=== PATIENT | female | born 1990 | race Caucasian/White ===

== ENCOUNTER 2021-05-05 15:10 | Emergency (ER) | payer MEDICAID, SELFPAY ==
[2021-05-05 15:24] VITALS: BP 116/66; PULSE 97; RESP 18; TEMP 36.2; O2SAT 100; BMI 31.0
--- NOTE | 2021-05-05 17:00 | ED_ITS ---
HPI - Skin/Abscess/Foreign Bdy General: Chief complaint: Skin/Abscess/Foreign Body Stated complaint: L HAND FINGER INFECTION Time Seen by Provider: 05/05/21 16:59 History of Present Illness: HPI narrative: patient comes in today with soreness and redness to left index finger for 3 days. patient reports she chews on her nail. patient reports no antibiotic allergies. patient reports no history of recurrent staph infections. Review of Systems General: Reports: 10 or more systems reviewed and unremarkable except in HPI and below Skin/Breast: Reports: other (left index finger redness and pain) Physical Exam Const: COMMON NORMALS: no acute distress and patient oriented x3 GENERAL APPEARANCE: cooperative HENMT: COMMON NORMALS: normocephalic HEAD & SCALP: normal to inspection and normocephalic Eye: GENERAL EYE: appearance normal, both eyes and all related structures Neck/C-Spine: COMMON NORMALS: full ROM Chest: COMMONS NORMALS: normal inspection of the chest Resp: COMMON NORMALS: normal respiratory effort EFFORT & INSPECTION: Yes able to speak in complete sentences Cardio: COMMON NORMALS: regular rate and regular rhythm RATE: regular rate RHYTHM: regular rhythm GI: COMMON NORMALS: non-tender Extremity: COMMON NORMALS: normal to inspection Neuro: COMMON NORMALS: patient oriented x3 and moves all extremities Psych: COMMON NORMALS: mental status grossly normal and cooperative Skin: NARRATIVE SKIN EXAM: erythema and swelling to left nailbed index finger. localized to distal finger, normal range of motion Course Vital Signs: Vital signs: Vital Signs Temperature 97.2 F L 05/05/21 15:24 Pulse Rate 97 05/05/21 15:24 Respiratory Rate 18 05/05/21 15:24 Blood Pressure 116/66 05/05/21 15:24 Pulse Oximetry 100 05/05/21 15:24 MDM - Skin/Abscess/Foreign Bdy MDM Narrative: Medical decision making narrative: patient comes in for redness and swelling distal left index finger for 2-3 days. good range of motion of finger. redness and swelling localized to nail matrix area. differential diagnosis includes paronychia, cellulitis, tenosynivitis. no sign of serious illness. will treat paronychia with oral augmentin 875 two times a day, and mupirocin ointment to base of nail until healed. patient reports understanding and agrees to plan. Discharge Plan Discharge Patient Disposition: Home Clinical Impression: Paronychia Condition: Stable Prescriptions: New Augmentin 875-125 mg tablet 1 tab PO BID Qty: 14 RF: 0 mupirocin 2 % ointment 1 applic topical BID Qty: 22 RF: 0 Discharge Orders: Discharge ED (Routine); Ordered 05/05/21 Ordered By: Hector Alston Discharge Diet: Usual diet Discharge Activity: Increase activity as tolerated Patient Instructions: Paronychia (ED) Activity Restrictions/Additional Instructions: Medications as directed, apply ointment to nail bed twice a day until healed. oral antibiotics twice a day for 7 days. follow-up with primary care for further instruction. return to ER for new concerns. Coding Level of Care Code ED [employer] for Silvia Madsen
[2021-05-05] MEDS: amoxicillin-clav 875-125 mg Tablet 1 TAB PO (17:43)
[2021-05-05] MEDS: mupirocin oint 22 gm 1 APPLIC TOPICAL (17:43)
[2021-05-05 17:48] VITALS: RESP 15
[2021-05-05 17:55] VITALS: BP 125/72; PULSE 91; RESP 16; O2SAT 100
== END 2021-05-05 17:53 | disposition home or self-care (01) ==
PROVIDERS: Emergency Provider Nurse Practitioner Family
DX: L03.012 Cellulitis of left finger (principal)
CPT/HCPCS: 99283